=== PATIENT | female | born 1980 | race Two or more races ===

== ENCOUNTER 2022-07-21 10:59 | Emergency (ER) | payer MEDICAID ==
[~2022-07-21] VITALS: Ht 167.6 cm; Wt 56.7 kg
[2022-07-21 10:59] VITALS: BP 104/62
--- NOTE | 2022-07-21 11:00 | NUR ---
BIBS FOR LACERATION TO KNEE. A/O X 3, ABLE TO MAKE NEEDS KNOWN, TOLERATING WELL ON ROOM AIR.
[2022-07-21] MEDS ORDERED: LIDOCAINE 1% INJ 50 ML MDV IJ ONE ×2 (11:31→15:00)
[2022-07-21] MEDS: TDAP [DIPH/PERTUSSIS/TET] 0.5 ML VIAL IM ONE ×2 (11:34→12:06)
--- NOTE | 2022-07-21 12:00 | NUR ---
Patient discharged to home in stable condition. Written and verbal after care instructions given. Patient verbalizes understanding of instruction.
[2022-07-21] MEDS ORDERED: TDAP [DIPH/PERTUSSIS/TET] 0.5 ML VIAL IM ONE (12:02)
[2022-07-21] MEDS ORDERED: IBUP-1955 PO (12:16)
[2022-07-21] MEDS ORDERED: BACI/NEOM/POLY B OINT PKT 1 UDPKT PACKET TP ONE (15:00)
== END 2022-07-21 13:52 | disposition home or self-care (01) ==
LOC: ER 11:01
DX: S81.011A Laceration without foreign body, right knee, initial encounter (principal); Z79.899 Other long term (current) drug therapy; W01.0XXA Fall on same level from slipping, tripping and stumbling without subsequent striking against object, initial encounter; Y93.89 Activity, other specified; Y92.89 Other specified places as the place of occurrence of the external cause; Y99.8 Other external cause status
CPT/HCPCS: 99283; 12001; 90471; 90715; J3490; A6403

== ENCOUNTER 2023-08-10 21:20 | Emergency (ER) | payer MEDICAID ==
[~2023-08-10] VITALS: Ht 167.6 cm; Wt 56.7 kg
[~2023-08-10 21:20] MED LIST: IBUP-1955 PO
[2023-08-10] MEDS ORDERED: PRED50TA PO (22:36)
[2023-08-10] MEDS ORDERED: ALBU8.5H8 INH (22:36)
[2023-08-10] MEDS ORDERED: BENZ-13 PO (22:36)
[2023-08-10 22:53] VITALS: BP 111/81; TEMP 98.5; O2SAT 98
== END 2023-08-10 22:53 | disposition home or self-care (01) ==
LOC: ER 21:23
DX: J06.9 Acute upper respiratory infection, unspecified (principal)